=== PATIENT | male | born 2000 | race African-American/Black ===

== ENCOUNTER 2020-11-06 20:45 | Emergency (ER) | payer SELFPAY ==
[~2020-11-06] VITALS: Ht 172.7 cm; Wt 61.7 kg
--- NOTE | 2020-11-06 20:45 | NUR ---
ED Nurse Note: Pt brought to the ED due to Si thought . Pt is A&Ox4, verbal, and vital stable. pt stated; he do not have a plan to tharm himself or others.
[2020-11-06 20:50] VITALS: BP 130/90
--- NOTE | 2020-11-06 20:58 | Emergency Room Report ---
History of Present Illness General Chief Complaint: Behavioral Complaint Source: Patient Present Illness HPI 20-year-old male presents with passive suicidality, patient denies any acute suicidal ideations at this time severity is mild, intermittent fluctuating states he just needs a place to stay patient presents for evaluation treatment Allergies: Coded Allergies: No Known Allergies (Unverified , 11/06/20) COVID-19 Screening Contact w/high risk pt: No Experienced COVID-19 symptoms?: No COVID-19 Testing performed DETAIL SERGEANT: No Patient History Past Medical History: see triage record Social History: Reports: drug use Reviewed Nursing Documentation: PMH: Agreed; PSxH: Agreed Review of Systems All Other Systems: negative except mentioned in HPI Physical Exam Vital Signs Date Time Temp Pulse Resp B/P (MAP) Pulse Ox O2 Delivery O2 Flow Rate FiO2 11/06/20 20:39 97.2 90 18 130/90 (103) 98 Room Air Sp02 EP Interpretation: reviewed, normal General Appearance: well appearing, no apparent distress, alert Head: normocephalic, atraumatic Eyes: bilateral eye PERRL, bilateral eye EOMI ENT: uvula midline, moist mucus membranes Neck: supple, thyroid normal, supple/symm/no masses Respiratory: lungs clear, no respiratory distress, no retraction, no accessory muscle use Cardiovascular #1: normal peripheral pulses, regular rate, rhythm, no edema, no gallop, no murmur Gastrointestinal: non tender, soft, no guarding, no rebound Musculoskeletal: normal inspection Neurologic: alert, oriented x3 Psychiatric: mood/affect normal, no suicidal/homicidal ideation Skin: no rash, warm/dry Medical Decision Making Homeless Attestation I, The treating physician Dr. Koehler, have assessed and agrees that patient is medically stable for discharge to an outpatient disposition. Diagnostic Impression: Primary Impression: Behavioral disorder ER Course 20-year-old male presents with passive suicidality currently denies any acute suicidal ideations at this time patient engaged in a safety contract will return if he worsens Patient given a list of resources food Disposition home with return precautions follow-up with PCP Last Vital Signs Date Time Temp Pulse Resp B/P (MAP) Pulse Ox O2 Delivery O2 Flow Rate FiO2 11/06/20 20:39 97.2 90 18 130/90 (103) 98 Room Air Disposition: HOME, SELF-CARE Condition: Stable [facility] Patient Instructions: Self-Destructive Behavior Additional Instructions: The patient was provided with discharge instructions, notified to follow-up with a primary care doctor and or specialist in the next 24-48 hours, and to return to the ED if they have worsening of their symptoms. Please note that this report is being documented using [employer] technology. This can lead to erroneous entry secondary to incorrect interpretation by the dictating instrument. Caleb Koehler MD Nov 06, 2020 20:58
[2020-11-06 21:05] VITALS: BP 130/90
--- NOTE | 2020-11-06 21:05 | NUR ---
ER DISCHARGE NOTE: Patient is cleared to be discharged per ERMD, pt is aox4, on room air, with stable vital signs. pt was given dc instructions, pt was able to verbalize understanding, pt id band removed without complications.Mental health resource and mental health facility list given to the pt. pt wanted to leave the ED becuase of fear of covid. pt is able to ambulate with steady gait. pt took all belongings.
== END 2020-11-06 21:05 | disposition home or self-care (01) ==
LOC: EDBD 20:45 → EMR 20:57
DX: F91.9 Conduct disorder, unspecified (principal)
CPT/HCPCS: 99281